=== PATIENT | female | born 1945 | race Caucasian/White ===

== ENCOUNTER 2023-08-14 19:48 | Emergency (ER) | payer MEDICARE, OTHER ==
[2023-08-14] MEDS: Acetaminophen/Codeine 300-30 MG Tab PO ONE (21:58)
== END 2023-08-14 23:41 | disposition home or self-care (01) ==
LOC: JP.ED 19:48
DX: S42.031A Displaced fracture of lateral end of right clavicle, initial encounter for closed fracture (principal); Z88.2 Allergy status to sulfonamides; Z88.8 Allergy status to other drugs, medicaments and biological substances; W01.0XXA Fall on same level from slipping, tripping and stumbling without subsequent striking against object, initial encounter
CPT/HCPCS: 70450; 73030; 82947; 99284; A9270

== ENCOUNTER 2023-08-15 16:55 | Observation (INO) | payer MEDICARE ==
[2023-08-15] MEDS: Ondansetron 4 MG Tab.DIS PO ONE (17:54)
[2023-08-15] MEDS: Acetaminophen 500 MG Tab PO ONE (17:59)
[2023-08-15 18:12] LABS: BASOPHILS PERCENT AUTO 0.1 % (0.1-1.3); EOSINOPHILS PERCENT AUTO 0.1 % (0.0-5.4); HEMATOCRIT 32.3 % (34.3-46.0); HEMOGLOBIN 11.6 g/dL (11.2-15.5); IMMATURE GRAN ABSOLUTE AUTO 0.04 K/uL (0.00-0.23); IMMATURE GRAN PERCENT AUTO 0.6 % (0.0-0.7); LYMPHOCYTES ABSOLUTE AUTO 0.51 K/uL (0.8-3.3); LYMPHOCYTES PERCENT AUTO 7.5 % (11.4-47.7); MEAN CORPUSCULAR HEMOGLOBIN 32.8 pg (31.6-35.5); MEAN CORPUSCULAR HGB CONC 35.9 g/dL (31.6-35.5); MEAN CORPUSCULAR VOLUME 91.2 fL (81.4-99.0); MONOCYTES ABSOLUTE AUTO 0.39 K/uL (0.20-0.90); MONOCYTES PERCENT AUTO 5.7 % (3.3-12.6); NEUTROPHILS ABSOLUTE AUTO 5.83 K/uL (1.0-7.6); PLATELET COUNT,PLT 150 K/uL (130-375); RED BLOOD CELL COUNT 3.54 M/uL (3.77-5.24); WHITE BLOOD CELL COUNT,WBC 6.8 K/uL (3.2-11.0)
[2023-08-15 18:13] LABS: BASOPHILS ABSOLUTE AUTO 0.01 K/uL (0.00-0.10); EOSINOPHILS ABSOLUTE AUTO 0.01 K/uL (0.00-0.40)
[2023-08-15] MEDS: Sodium Chloride 0.9% 1,000 ML IV ONE (18:13)
[2023-08-15 18:27] LABS: CALCIUM 9.4 mg/dL (8.5-10.1); CREATININE 0.7 mg/dL (0.6-1.0); EST CRCL DRUG DOSING (CG) 49.53 mL/min; POTASSIUM,K 3.8 mmol/L (3.6-5.2)
[2023-08-15 18:28] LABS: ANION GAP 12.8 mmol/L (5.0-14.0)
[2023-08-15] MEDS ORDERED: Ondansetron 4 MG/2 ML SDV IV PRN (20:01)
[2023-08-15] MEDS ORDERED: Naloxone 0.4 MG/ML SDV IVPUSH PRN (20:01)
[2023-08-15] MEDS ORDERED: Bisacodyl 5 MG Tab PO PRN (20:01)
[2023-08-15] MEDS ORDERED: Docusate Sodium 100 MG Cap PO PRN (20:01)
[2023-08-15] MEDS ORDERED: Morphine 2 MG/ML SYRINGE IVPUSH PRN (20:01)
[2023-08-15] MEDS ORDERED: oxyCODONE 5 MG Tab PO PRN (20:01)
[2023-08-15 20:19] LABS: APPEARANCE,URINE CLEAR (CLEAR); BILIRUBIN,URINE NEGATIVE (NEGATIVE); COLOR,URINE YELLOW (YELLOW); GLUCOSE,URINE NEGATIVE (NEGATIVE); KETONES,URINE 40 mg/dL (NEGATIVE); LEUKOCYTE ESTERASE,URINE NEGATIVE (NEGATIVE); NITRITE,URINE NEGATIVE (NEGATIVE); OCCULT BLOOD,URINE TRACE-INTACT (NEGATIVE); PROTEIN,URINE NEGATIVE (NEGATIVE); UROBILINOGEN,URINE 0.2 EU/dL (0.2-1.0)
[2023-08-15 20:26] LABS: AMORPHOUS SEDIMENT,URINE NOT SEEN; BACTERIA,URINE FEW; EPITHELIAL CELLS,URINE FEW; MUCUS,URINE RARE; RBC,URINE 0-5 (0-5); WBC,URINE 0-5 (0-5)
[2023-08-15] MEDS: Melatonin 3 MG Tab PO SCH (20:58)
[2023-08-15] MEDS: Sodium Chloride 0.9% 1,000 ML IV SCH (21:06)
[2023-08-15] MEDS: atorvaSTATin 20 MG Tab PO SCH (21:13)
[2023-08-15] MEDS: Losartan 50 MG Tab PO SCH (21:13)
[2023-08-15] MEDS: Famotidine 20 MG Tab PO SCH ×2 (21:14)
[2023-08-15] MEDS: Acetaminophen 325 MG Tab PO PRN (21:32)
[2023-08-16] MEDS: Ondansetron 4 MG Tab.DIS PO PRN (02:50)
[2023-08-16 05:33] LABS: BASOPHILS PERCENT AUTO 0.2 % (0.1-1.3); EOSINOPHILS ABSOLUTE AUTO 0.04 K/uL (0.00-0.40); EOSINOPHILS PERCENT AUTO 0.8 % (0.0-5.4); HEMATOCRIT 26.6 % (34.3-46.0); HEMOGLOBIN 9.2 g/dL (11.2-15.5); IMMATURE GRAN PERCENT AUTO 0.4 % (0.0-0.7); LYMPHOCYTES ABSOLUTE AUTO 0.93 K/uL (0.8-3.3); LYMPHOCYTES PERCENT AUTO 19.6 % (11.4-47.7); MEAN CORPUSCULAR HEMOGLOBIN 31.9 pg (31.6-35.5); MEAN CORPUSCULAR HGB CONC 34.6 g/dL (31.6-35.5); MEAN CORPUSCULAR VOLUME 92.4 fL (81.4-99.0); MONOCYTES ABSOLUTE AUTO 0.35 K/uL (0.20-0.90); MONOCYTES PERCENT AUTO 7.4 % (3.3-12.6); NEUTROPHILS PERCENT AUTO 71.6 % (40.0-78.1); PLATELET COUNT,PLT 130 K/uL (130-375); RED BLOOD CELL COUNT 2.88 M/uL (3.77-5.24); WHITE BLOOD CELL COUNT,WBC 4.8 K/uL (3.2-11.0)
[2023-08-16 05:43] LABS: BASOPHILS ABSOLUTE AUTO 0.01 K/uL (0.00-0.10); IMMATURE GRAN ABSOLUTE AUTO 0.02 K/uL (0.00-0.23)
[2023-08-16 05:53] LABS: ANION GAP 11.8 mmol/L (5.0-14.0); CALCIUM 7.7 mg/dL (8.5-10.1); CREATININE 0.6 mg/dL (0.6-1.0); EST CRCL DRUG DOSING (CG) 57.79 mL/min; POTASSIUM,K 3.8 mmol/L (3.6-5.2)
[2023-08-16] MEDS ORDERED: Famotidine 20 MG Tab PO SCH (21:00)
[2023-08-17 05:10] LABS: BASOPHILS PERCENT AUTO 0.5 % (0.1-1.3); EOSINOPHILS ABSOLUTE AUTO 0.08 K/uL (0.00-0.40); EOSINOPHILS PERCENT AUTO 1.8 % (0.0-5.4); HEMATOCRIT 28.6 % (34.3-46.0); HEMOGLOBIN 9.9 g/dL (11.2-15.5); IMMATURE GRAN PERCENT AUTO 0.2 % (0.0-0.7); LYMPHOCYTES ABSOLUTE AUTO 1.06 K/uL (0.8-3.3); LYMPHOCYTES PERCENT AUTO 24.5 % (11.4-47.7); MEAN CORPUSCULAR HGB CONC 34.6 g/dL (31.6-35.5); MEAN CORPUSCULAR VOLUME 92.6 fL (81.4-99.0); MONOCYTES ABSOLUTE AUTO 0.35 K/uL (0.20-0.90); MONOCYTES PERCENT AUTO 8.1 % (3.3-12.6); NEUTROPHILS ABSOLUTE AUTO 2.81 K/uL (1.0-7.6); NEUTROPHILS PERCENT AUTO 64.9 % (40.0-78.1); PLATELET COUNT,PLT 128 K/uL (130-375); RED BLOOD CELL COUNT 3.09 M/uL (3.77-5.24); WHITE BLOOD CELL COUNT,WBC 4.3 K/uL (3.2-11.0)
[2023-08-17 05:17] LABS: BASOPHILS ABSOLUTE AUTO 0.02 K/uL (0.00-0.10); IMMATURE GRAN ABSOLUTE AUTO 0.01 K/uL (0.00-0.23)
[2023-08-17 05:24] LABS: CALCIUM 8.1 mg/dL (8.5-10.1); CREATININE 0.6 mg/dL (0.6-1.0); EST CRCL DRUG DOSING (CG) 57.79 mL/min; POTASSIUM,K 3.8 mmol/L (3.6-5.2)
[2023-08-17 05:47] LABS: ANION GAP 12.8 mmol/L (5.0-14.0)
== END 2023-08-17 14:36 | disposition home or self-care (01) ==
LOC: JP.ED 16:55 → JP.MS 19:19
PROVIDERS: ADMIT Hospitalist; ATTEND Hospitalist
DX: S42.031A Displaced fracture of lateral end of right clavicle, initial encounter for closed fracture (principal); S06.6XAA Traumatic subarachnoid hemorrhage with loss of consciousness status unknown, initial encounter; I10 Essential (primary) hypertension; K21.9 Gastro-esophageal reflux disease without esophagitis; Z79.899 Other long term (current) drug therapy; Z88.2 Allergy status to sulfonamides; Z88.8 Allergy status to other drugs, medicaments and biological substances; W19.XXXA Unspecified fall, initial encounter
CPT/HCPCS: 36415; 70450; 80048; 81001; 85025; 97161; A9270; J7030; Q0162; 96360; 96361; 99222; 99231; 99239; 99285-25; G0378